=== PATIENT | female | born 1975 | race African-American/Black ===

== ENCOUNTER 2019-03-23 21:17 | Emergency (ER) | payer OTHER ==
[2019-03-23 21:29] VITALS: BMI 36.8
[2019-03-23] MEDS ORDERED: METOCLOPRAMIDE HCL INJECTION 10 MG/2 ML VIAL IVPUSH ONE (21:32)
[2019-03-23] MEDS ORDERED: ACETAMINOPHEN 1000 MG/100 ML VIAL (NON FORMULARY) IVPB ONE (21:32)
[2019-03-23] MEDS ORDERED: SODIUM CHLORIDE 2,926 ML IV ONE (21:56)
--- NOTE | 2019-03-23 21:56 | PDOC ---
History of Present Illness - General Chief Complaint: CVA/TIA Stated Complaint: HEADACHE, CHILLS Time Seen by Provider: 03/23/19 21:49 History Source: Patient Exam Limitations: No Limitations - History of Present Illness Initial Comments: Gilmer Rollins is a 44 yo obese f w a pmh of HTN and migraines who presents to the [facility] ER because she has a fever, chills, nausea, and multiple episodes of diarrhea. The patient states she woke up this morning feeling well but then throughout the day she began to feel hot, had non-stop chills and rigors, and experienced multiple epsidoes of watery diarrhea. The patient states she also has a headache and some neck pain. She endorses a significant amount of nausea but no emesis yet. Patient denies any confusion, weakness, numbness, tingling, or chills. Patient denies any dysuria, frequency, or urgency. Patient denies any shortness of breath, difficulty breathing, or cough. PCP: Cherri Shannon PSH: Appendectomy Social Hx: Denies smoking, drinking, or other substance usage Allergies: Penicillins, Sulfa Past History - Past Medical History Allergies/Adverse Reactions: Allergies Allergy/AdvReac Type Severity Reaction Status Date / Time Penicillins Allergy Mild Rash Verified 03/24/19 02:58 Sulfa (Sulfonamide Allergy Mild Rash Verified 03/24/19 02:58 Antibiotics) Home Medications: Ambulatory Orders Nifedipine [Nifedical Xl] 30 mg PO HS 08/10/16 Asthma: No Cancer: No Cardiac Disorders: No Diabetes: No HTN: Yes Seizures: No Thyroid Disease: No - Suicide/Smoking/Psychosocial Hx Smoking History: Never smoked Have you smoked in the past 12 months: No Hx Alcohol Use: No Drug/Substance Use Hx: No Substance Use Type: None Hx Substance Use Treatment: No Review of Systems - Review of Systems Able to Perform ROS?: Yes Comments:: CONSTITUTIONAL: Present: fever, chills, diaphoresis, generalized weakness, malaise, loss of appetite HEENT: Absent: rhinorrhea, nasal congestion, throat pain, throat swelling, difficulty swallowing, mouth swelling, ear pain, eye pain, visual Changes CARDIOVASCULAR: Absent: chest pain, syncope, palpitations, irregular heart rate, lightheadedness , peripheral edema RESPIRATORY: Absent: cough, shortness of breath, dyspnea with exertion, orthopnea, wheezing, stridor, hemoptysis GASTROINTESTINAL: Present: Abdominal pain, nausea, diarrhea Absent: abdominal distension, vomiting, constipation, melena, hematochezia GENITOURINARY: Absent: dysuria, frequency, urgency, hesitancy, hematuria, flank pain, genital pain MUSCULOSKELETAL: Present: myalgia Absent: arthralgia, joint swelling SKIN: Absent: rash, itching, pallor HEMATOLOGIC/IMMUNOLOGIC: Absent: easy bleeding, easy bruising, lymphadenopathy, frequent infections ENDOCRINE: Absent: unexplained weight gain, unexplained weight loss, heat intolerance, cold intolerance NEUROLOGIC: Present: Headache Absent: focal weakness or paresthesias, dizziness, unsteady gait, seizure, mental status changes, bladder or bowel incontinence PSYCHIATRIC: Absent: anxiety, depression, suicidal or homicidal ideation, hallucinations. *Physical Exam - Vital Signs Last Vital Signs Temp Pulse Resp BP Pulse Ox 99.8 F H 115 H 20 119/101 H 100 03/23/19 21:20 03/23/19 21:20 03/23/19 21:20 03/23/19 21:20 03/23/19 21:20 - Physical Exam Comments: GENERAL: Well developed, well nourished. Awake and alert. Mild distress. HEENT: Normocephalic, atraumatic. PERRLA, EOMI. No conjunctival pallor. Sclera are non- icteric. Moist mucous membranes. Oropharynx is clear. NECK: Supple. Full ROM. No JVD. No lymphadenopathy. CARDIOVASCULAR: Tachycardic rate and regular rhythm. No murmurs, rubs, or gallops. Distal pulses are 2+ and symmetric. PULMONARY: No evidence of respiratory distress. Lungs clear to auscultation bilaterally. No wheezing, rales or rhonchi. ABDOMINAL: Hyperactive bowel sounds. Abdomen is still soft and Non-distended. No rebound or guarding. No organomegaly. Normoactive bowel sounds. MUSCULOSKELETAL Normal range of motion at all joints. No bony deformities or tenderness. No CVA tenderness. EXTREMITIES: No cyanosis. No clubbing. No edema. No calf tenderness. SKIN: Warm and dry. Normal capillary refill. No rashes. No jaundice. NEUROLOGICAL: Alert, awake, appropriate. Cranial nerves 2-12 intact. No deficits to light touch in face, upper extremities and lower extremities. No motor deficits in the in face, upper extremities and lower extremities. Normal speech. Gait is normal without ataxia. PSYCHIATRIC: Cooperative. Good eye contact. Appropriate mood and affect. ED Treatment Course - LABORATORY CBC & Chemistry Diagram: 03/23/19 22:50 03/23/19 22:50 - RADIOLOGY Radiograph Interpretation: CXR: Chest: Sepsis Single AP view of the chest reveals a lordotic projection with clear lungs, normal mediastinum and sharp angles. The soft tissues are excessive. An acute process is not seen. Impression: No acute chest pathology. Head CT: No acute brain parenchymal abnormality. No hemorrhage or acute territorial infarct. 1.3 cm extra-axial calcification overlying left parietal lobe, incidental dural calcifciation more likely than calcified meningioma. Clear visualized paranasal sinuses. Visualized mastoid air cells clear. CTAP: EXAM: CT ABDOMEN AND PELVIS WITH CONTRAST No bowel obstruction, colitis, or free air. Diverticula ascending colon and distal ileum. Pericecal surgical changes. Appendix not seen. Unremarkable pancreas, kidneys and gallbladder. Hepatomegaly. Small umbilical hernia containing fat. Enlarged leiomyomatous uterus. Small physiologic free fluid cul-de-sac. No abscess. Partly seen enlarged right axillary lymph node, indeterminate. Medical Decision Making - Medical Decision Making Gilmer Rollins is a 44 yo obese f w a pmh of HTN and migraines who presents to the [facility] ER because she has a fever, chills, nausea, and multiple episodes of diarrhea. The patient states she woke up this morning feeling well but then throughout the day she began to feel hot, had non-stop chills and rigors, and experienced multiple epsidoes of watery diarrhea. The patient states she also has a headache and some neck pain. She endorses a significant amount of nausea but no emesis yet. Patient denies any confusion, weakness, numbness, tingling, or chills. Patient denies any dysuria, frequency, or urgency. Patient denies any shortness of breath, difficulty breathing, or cough. Vital Signs Temp Pulse Resp BP Pulse Ox 101.7 F H 115 H 20 119/101 H 100 03/23/19 21:40 03/23/19 21:20 03/23/19 21:20 03/23/19 21:20 03/23/19 21:20 - tachycardic - Febrile MDM: Patient is septic with multiple episodes of diarrhea. Most likely source is a gastroenteritis. Will perform a full septic workup and then re-assess. Labs: Lactic acidoses - Repeat lactic after IV hydration normal Urine: Clean w no signs of infection Head CT: No acute brain parenchymal abnormality. No hemorrhage or acute territorial infarct. 1.3 cm extra-axial calcification overlying left parietal lobe, incidental dural calcifciation more likely than calcified meningioma. Clear visualized paranasal sinuses. Visualized mastoid air cells clear. EKG: Sinus tachycardia rate of 109, narrow complexes, normal axis, no hypertrophy, no ST elevation or depression, no abnormal TWI, no Q waves, DC - 146, QTc - 433 CXR: No focal infiltrate CTAP: Unremarkable - full report above Re-assessment: Patient feels much better after IV hydration and analgesia and requests to be discharged. Disposition: Home with PCP fu *DC/Admit/Observation/Transfer Diagnosis at time of Disposition: Diarrhea Qualifiers: Diarrhea type: unspecified type Qualified Code(s): R19.7 - Diarrhea, unspecified - Discharge Dispostion Disposition: HOME Condition at time of disposition: Improved Decision to Admit order: No - Referrals Referrals: [facility] [place] [Provider Group] - Patient Instructions Printed Discharge Instructions: Diarrhea Additional Instructions: Please make sure to schedule a follow up appointment with your primary care doctor in the next 3 to 5 days. Come back to the ER immediately with any new or worsening concerns. You were given copies of the readings for your abdomen and head cat scans. Please make sure to show these to your primary care doctor and decide what to do with them together with your regular doctor. Print Language: SYRIAC - Post Discharge Activity Forms/Work/School Notes: Back to Work, Parent(s) Back to Work Note
[2019-03-23] MEDS ORDERED: ACETAMINOPHEN INJECTION 100 ML IVPB ONE (22:11)
--- NOTE | 2019-03-23 22:17 | PDOC ---
Documentation entered by Lupe Fairchild SCRIBE, acting as scribe for Sheryl Ferreira MD. Sheryl Ferreira MD: This documentation has been prepared by the Gurinder barnes Brenda, SCRIBE, under my direction and personally reviewed by me in its entirety. I confirm that the documentation accurately reflects all work, treatment, procedures, and medical decision making performed by me. Attending Attestation - Resident Resident Name: Inderjit Watson - ED Attending Attestation I have performed the following: I have examined & evaluated the patient, The case was reviewed & discussed with the resident, I agree w/resident's findings & plan, Exceptions are as noted - HPI HPI: 03/23/19 22:12 The patient is a 44 year old female, with a significant PMH of migraine and hypertension, who presents to the emergency department with multiple episodes of diarrhea accompanied by fever, chills and nausea with no vomitting. She also notes nonstop chills and feeling very cold, and abdominal cramping which lead to her diarrhea.The patient also endorses neck pain and a mild headache. Patient states taking her normal headache medicine, but to no avail. The patient denies chest pain, shortness of breath and dizziness. Denies vomiting and constipation. Denies dysuria, frequency, urgency and hematuria. Denies any other symptoms Allergies: Penicillin and sulfonamide antibiotics Past surgical history: Appendectomy Social history: Denies tobacco use, alcohol use or illicit drug use. PCP: Cherri Shannon - Physicial Exam PE: 03/23/19 22:13 GENERAL:+Febrile +Rigors Well developed, well nourished. Awake and alert. No acute distress. HEENT: Normocephalic, atraumatic. PERRLA, EOMI. No conjunctival pallor. Sclera are non- icteric. Moist mucous membranes. Oropharynx is clear. NECK: Supple. Full ROM. No JVD. Carotid pulses 2+ and symmetric, without bruits. No thyromegaly. No lymphadenopathy. CARDIOVASCULAR: +Tachycardic No murmurs, rubs, or gallops. Distal pulses are 2+ and symmetric. PULMONARY: No evidence of respiratory distress. Lungs clear to auscultation bilaterally. No wheezing, rales or rhonchi. ABDOMINAL: Soft. Non-tender. Non-distended. No rebound or guarding. No organomegaly. Normoactive bowel sounds. MUSCULOSKELETAL Normal range of motion at all joints. No bony deformities or tenderness. No CVA tenderness. EXTREMITIES: No cyanosis. No clubbing. No edema. No calf tenderness. SKIN: Warm and dry. Normal capillary refill. No rashes. No jaundice. NEUROLOGICAL: Alert, awake, appropriate. Cranial nerves 2-12 intact. No deficits to light touch and temperature in face, upper extremities and lower extremities. No motor deficits in the in face, upper extremities and lower extremities. Normoreflexic in the upper and lower extremities. Normal speech. Toes are down- going bilaterally. Gait is normal without ataxia. PSYCHIATRIC: Cooperative. Good eye contact. Appropriate mood and affect. - Medical Decision Making 03/23/19 22:16 plan sepsis workup started 03/24/19 01:44 Urinalysis negative negative test lab review reveals a normal cbc but there is an elevated lactic acid pt received IVF and lactic acid will be repeated 03/24/19 01:56 ct scan no acute intracranial pathology pt feels better after tylenol and IVF 03/24/19 02:08 ct scan of abd/pel: no bowel obstruction,no colitis,no free air,diverticula ascending colon and distal ileum .Pericecal surgical changes,appendix not seen -unremarkable pancreas,kidneys and gallbladder hepatomegaly small unbiblical hernia containing fat enlarged leiomyomatous uterus no abscess partly seen enlarged right axillary lymph node,indeterminate 03/24/19 02:12 case s/o Dr Perez
[2019-03-23] MEDS ORDERED: METOCLOPRAMIDE HCL INJECTION 10 MG/2 ML VIAL ONE (22:22)
[2019-03-23 23:04] LABS: BASO % 0.3 % (0-2.0); EOS % 1.3 % (0-4.5); HEMATOCRIT 35.7 % (32.4-45.2); HEMOGLOBIN 11.6 GM/dL (10.7-15.3); LYMPH % 10.1 % (8-40); MCH 27.9 pg (25.7-33.7); MCHC 32.5 g/dl (32.0-36.0); MEAN CELL VOLUME 85.8 fl (80-96); MEAN PLT VOLUME 9.4 fl (7.5-11.1); MONO % 1.1 % (3.8-10.2); NEUT % 87.2 % (42.8-82.8); PLATELET COUNT 161 K/MM3 (134-434); RBC 4.16 M/mm3 (3.60-5.2); RDW 13.3 % (11.6-15.6); WHITE BLOOD COUNT 5.9 K/mm3 (4.0-10.0)
[2019-03-23 23:33] LABS: INR 1.08 (0.83-1.09); PROTHROMBIN TIME (PATIENT) 12.7 SEC (9.7-13.0)
[2019-03-23 23:36] LABS: ACTIVATED PTT 24.2 SECONDS (25.2-36.5)
[2019-03-23 23:40] LABS: ALBUMIN 3.6 g/dl (3.4-5.0); BILIRUBIN,TOTAL 0.5 mg/dL (0.2-1); BLOOD UREA NITROGEN 12.5 mg/dL (7-18); CALCIUM 8.6 mg/dL (8.5-10.1); CREATININE 1.1 mg/dL (0.55-1.3); TOT PROT 8.2 g/dl (6.4-8.2)
[2019-03-24 00:33] LABS: PH,URINE 6.5 (5.0-8.0); URINE APPEARANCE CLEAR; URINE BILIRUBIN NEGATIVE (NEGATIVE); URINE COLOR YELLOW; URINE GLUCOSE (UA) NEGATIVE (NEGATIVE); URINE KETONE NEGATIVE (NEGATIVE); URINE LEUK ESTERASE NEGATIVE (NEGATIVE); URINE NITRITE NEGATIVE (NEGATIVE); URINE PROTEIN NEGATIVE (NEGATIVE)
[2019-03-24] MEDS ORDERED: SODIUM CHLORIDE 0.9% 500 ML INFUS.BAG IV ONE (01:43)
--- NOTE | 2019-03-24 02:40 | PDOC ---
*Physical Exam - Vital Signs Last Vital Signs Temp Pulse Resp BP Pulse Ox 101.7 F H 115 H 20 119/101 H 100 03/23/19 21:40 03/23/19 21:20 03/23/19 21:20 03/23/19 21:20 03/23/19 21:20 ED Treatment Course - LABORATORY CBC & Chemistry Diagram: 03/23/19 22:50 03/23/19 22:50 - ADDITIONAL ORDERS Additional order review: Laboratory Results 03/24/19 03/24/19 03/23/19 00:00 00:00 22:50 PT with INR INR PTT (Actin FS) Sodium Potassium Chloride Carbon Dioxide Anion Gap BUN Creatinine Est GFR (CKD-EPI)AfAm Est GFR (CKD-EPI)NonAf Random Glucose Lactic Acid Calcium Total Bilirubin AST ALT Alkaline Phosphatase Creatine Kinase Creatine Kinase Index CK-MB (CK-2) Cancelled Troponin I Total Protein Albumin Urine Color Yellow Urine Appearance Clear Urine pH 6.5 Ur Specific [place] 1.015 Urine Protein Negative Urine Glucose (UA) Negative Urine Ketones Negative Urine Blood Negative Urine Nitrite Negative Urine Bilirubin Negative Urine Urobilinogen 1.0 Ur Leukocyte Esterase Negative Urine HCG, Qual Negative 03/23/19 03/23/19 03/23/19 22:50 22:50 22:50 PT with INR 12.70 INR 1.08 PTT (Actin FS) 24.2 L Sodium Potassium Chloride Carbon Dioxide Anion Gap BUN Creatinine Est GFR (CKD-EPI)AfAm Est GFR (CKD-EPI)NonAf Random Glucose Lactic Acid 4.0 H* Calcium Total Bilirubin AST ALT Alkaline Phosphatase Creatine Kinase 169 Creatine Kinase Index No Result Required. CK-MB (CK-2) < 1.0 Troponin I < 0.02 Total Protein Albumin Urine Color Urine Appearance Urine pH Ur Specific [place] Urine Protein Urine Glucose (UA) Urine Ketones Urine Blood Urine Nitrite Urine Bilirubin Urine Urobilinogen Ur Leukocyte Esterase Urine HCG, Qual 03/23/19 22:50 PT with INR INR PTT (Actin FS) Sodium 141 Potassium 4.0 Chloride 106 Carbon Dioxide 27 Anion Gap 8 BUN 12.5 Creatinine 1.1 Est GFR (CKD-EPI)AfAm 70.22 Est GFR (CKD-EPI)NonAf 60.58 Random Glucose 75 Lactic Acid Calcium 8.6 Total Bilirubin 0.5 AST 34 ALT 27 Alkaline Phosphatase 102 Creatine Kinase Creatine Kinase Index CK-MB (CK-2) Troponin I Total Protein 8.2 Albumin 3.6 Urine Color Urine Appearance Urine pH Ur Specific [place] Urine Protein Urine Glucose (UA) Urine Ketones Urine Blood Urine Nitrite Urine Bilirubin Urine Urobilinogen Ur Leukocyte Esterase Urine HCG, Qual 03/23/19 22:50 RBC 4.16 MCV 85.8 MCHC 32.5 RDW 13.3 MPV 9.4 Neutrophils % 87.2 H D Lymphocytes % 10.1 D Monocytes % 1.1 L D Eosinophils % 1.3 Basophils % 0.3 - RADIOLOGY Radiology Studies Ordered: Category Date Time Status HEAD CT WITHOUT CONTRAST [CT] Stat CT Scan 03/24/19 00:01 Taken - Medications Given in the ED: ED Medications Discontinued Medications Generic Name Dose Route Start Last Admin Trade Name Freq PRN Reason Stop Dose Admin Acetaminophen 1,000 mg 03/23/19 21:32 03/23/19 22:30 Ofirmev Injection - IVPB 03/23/19 21:33 1,000 mg ONCE ONE Administration Diphenhydramine HCl 25 mg 03/23/19 21:59 03/23/19 22:59 Benadryl Injection - IVPUSH 03/23/19 22:00 25 mg ONCE ONE Administration Sodium Chloride 2,926 mls @ 1,463 mls/hr 03/23/19 21:56 03/23/19 22:59 Normal Saline - 30 ml/kg infuse over 2 hr (2926 ml) 03/23/19 23:55 1,463 mls/hr IV Administration ONCE ONE Metoclopramide HCl 10 mg 03/23/19 21:32 03/23/19 22:30 Reglan Injection - IVPUSH 03/23/19 21:33 10 mg ONCE ONE Administration Sodium Chloride 1,000 ml 03/24/19 01:43 03/24/19 02:18 Normal Saline - IV 03/24/19 01:44 1,000 ml ONCE ONE Administration Medical Decision Making - Medical Decision Making 03/24/19 02:39 Patient Name: REMY PAIZ THIS IS A PRELIMINARY REPORT FROM [facility] DATE OF SERVICE: 2019-03-24 01:03:31 IMAGES: [id number] EXAM: CT HEAD WITHOUT CONTRAST No acute brain parenchymal abnormality. No hemorrhage or acute territorial infarct. 1.3 cm extra-axial calcification overlying left parietal lobe, incidental dural calcifciation more likely than calcified meningioma. Clear visualized paranasal sinuses. Visualized mastoid air cells clear. 03/24/19 02:40 Patient Name: REMY PAIZ THIS IS A PRELIMINARY REPORT FROM [facility] DATE OF SERVICE: 2019-03-24 01:06:37 IMAGES: [id number] EXAM: CT ABDOMEN AND PELVIS WITH CONTRAST No bowel obstruction, colitis, or free air. Diverticula ascending colon and distal ileum. Pericecal surgical changes. Appendix not seen. Unremarkable pancreas, kidneys and gallbladder. Hepatomegaly. Small umbilical hernia containing fat. Enlarged leiomyomatous uterus. Small physiologic free fluid cul-de-sac. *DC/Admit/Observation/Transfer Diagnosis at time of Disposition: Diarrhea - Discharge Dispostion Disposition: HOME Condition at time of disposition: Improved Decision to Admit order: No - Referrals - Patient Instructions Printed Discharge Instructions: Diarrhea - Post Discharge Activity Forms/Work/School Notes: Back to Work, Parent(s) Back to Work Note
[2019-03-24 03:48] VITALS: BP 93/50; PULSE 103
[2019-03-24 04:11] VITALS: TEMP 101.7
--- NOTE | 2019-03-24 09:21 | EKG ---
Test Reason : Blood Pressure : / mmHG Vent. Rate : 110 BPM Atrial Rate : 110 BPM P-R Int : 156 ms QRS Dur : 088 ms QT Int : 332 ms P-R-T Axes : 058 042 029 degrees QTc Int : 449 ms SINUS TACHYCARDIA OTHERWISE NORMAL ECG WHEN COMPARED WITH ECG OF 10-AUG-2016 16:13, NO SIGNIFICANT CHANGE WAS FOUND Confirmed by MINISTERIO ENCINAS MD ([id number]) on 03/24/2019 9:21:22 AM Referred By: Confirmed By:MINISTERIO ENCINAS MD
--- NOTE | 2019-03-26 13:08 | EKG ---
Test Reason : Blood Pressure : / mmHG Vent. Rate : 109 BPM Atrial Rate : 109 BPM P-R Int : 146 ms QRS Dur : 082 ms QT Int : 322 ms P-R-T Axes : 062 055 042 degrees QTc Int : 433 ms SINUS TACHYCARDIA OTHERWISE NORMAL ECG WHEN COMPARED WITH ECG OF 10-AUG-2016 16:13, NO SIGNIFICANT CHANGE WAS FOUND Confirmed by MAJO BLANK MD ([id number]) on 03/26/2019 1:08:11 PM Referred By: Confirmed By:MAJO BLANK MD
== END 2019-03-24 04:00 | disposition home or self-care (01) ==
LOC: JER 21:17
PROC: 3E0337Z Introduction of Electrolytic and Water Balance Substance into Peripheral Vein, Percutaneous Approach (ICD-10-PCS; principal; 2019-03-23)
PROC: 3E033GC Introduction of Other Therapeutic Substance into Peripheral Vein, Percutaneous Approach (ICD-10-PCS; 2019-03-23)
PROC: 3E033NZ Introduction of Analgesics, Hypnotics, Sedatives into Peripheral Vein, Percutaneous Approach (ICD-10-PCS; 2019-03-23)
DX: R19.7 Diarrhea, unspecified (principal)
CPT/HCPCS: 36415; 70450-TC; 71045-TC-FY; 74177-TC; 80053; 81003; 82550; 82553; 83605; 84484; 84703; 85025; 85610; 85730; 87040; 87086; 93005; 93010; 99283-25; J0131; J7030

== ENCOUNTER 2021-11-15 15:34 | Emergency (ER) | payer OTHER ==
[2021-11-15 16:05] VITALS: BP 146/86; PULSE 94; TEMP 98; BMI 38.2
[2021-11-15 18:29] LABS: BASO % 0.9 % (0-2.0); EOS % 2.8 % (0-4.5); HEMATOCRIT 34.9 % (32.4-45.2); HEMOGLOBIN 11.5 GM/dL (10.7-15.3); LYMPH % 36.2 % (8-40); MCH 27.4 pg (25.7-33.7); MCHC 32.8 g/dl (32.0-36.0); MEAN CELL VOLUME 83.4 fl (80-96); MEAN PLT VOLUME 9.3 fl (7.5-11.1); MONO % 12.6 % (3.8-10.2); NEUT % 47.5 % (42.8-82.8); PLATELET COUNT 209 10^3/uL (134-434); RBC 4.19 M/mm3 (3.60-5.2); RDW 14.1 % (11.6-15.6); WHITE BLOOD COUNT 3.8 K/mm3 (4.0-10.0)
[2021-11-15 18:48] LABS: ALBUMIN 3.4 g/dl (3.4-5.0); BLOOD UREA NITROGEN 11.7 mg/dL (7-18)
[2021-11-15 18:51] LABS: CREATININE 0.9 mg/dL (0.55-1.3)
[2021-11-15 18:52] LABS: BILIRUBIN,TOTAL 0.8 mg/dL (0.2-1); TOT PROT 8.2 g/dl (6.4-8.2)
== END 2021-11-15 21:09 | disposition home or self-care (01) ==
LOC: JER 15:34
DX: R07.9 Chest pain, unspecified (principal)
CPT/HCPCS: 36415; 71046-TC-FY; 80053; 84484; 85025; 93005; 93010; 99285-25